=== PATIENT | female | born 1980 | race Caucasian/White ===

== ENCOUNTER → 2022-12-23 | Outpatient (CLI) | payer BC ==
[~2022-12-23] MED LIST: **SFHN** LIDOCAINE 1% MDV 20ML VIAL ONE; **SFHN** SODIUM BICARBONATE 8.4% 10MEQ 10ML VIAL ONE; ACET-897 PO; BUSP1TAB PO; IBUP-1114 PO; NAPR-885 PO; NOXI1TAB PO; TRAZ-252 PO
[2022-12-23 12:26] VITALS: TEMP 98
[2022-12-23 14:20] VITALS: BP 112/64; O2SAT 100
== END ==
LOC: M WHCPRO 12:08
PROVIDERS: ATTEND Nurse Practitioner
DX: R92.8 Other abnormal and inconclusive findings on diagnostic imaging of breast (principal); N63.15 Unspecified lump in the right breast, overlapping quadrants